=== PATIENT | female | born 1965 | race American Indian/Alaskan Native ===

== ENCOUNTER 2016-12-19 02:41 | Emergency (ER) | payer OTHER ==
[2016-12-19] MEDS ORDERED: Tmp-Smz 800 mg-160 mg DS Tab PO STA (03:20)
--- NOTE | 2016-12-19 03:24 | ED PDOC ---
Arrival/HPI - General Time Seen by Provider: 12/19/16 03:17 Historian: Patient - History of Present Illness Narrative History of Present Illness (Text): 12/19/16 03:20 51 y.o. female who denies any past medical history who says that she felt something bite her on the right side of her lower buttock cheek/upper posterior thigh area and since then says it hurts more. No fever or other findings. No pain anywhere else. Family/Social History Family/Social History: No Known Family HX Allergies/Home Meds Allergies/Adverse Reactions: Allergies No Known Allergies Allergy (Unverified 12/19/16 03:19) Review of Systems - Review of Systems Constitutional: absent: Fevers Gastrointestinal: absent: Abdominal Pain Skin: Skin Lesions Physical Exam Temperature: Afebrile Blood Pressure: Normal Pulse: Regular Respiratory Rate: Normal Appearance: Positive for: Well-Appearing, Non-Toxic, Comfortable Pain Distress: None Mental Status: Positive for: Alert and Oriented X 3 - Systems Exam Head: Present: Atraumatic, Normocephalic Abdomen: Present: Normal Bowel Sounds. No: Tenderness, Distention, Peritoneal Signs Lower Extremity: Present: Other (posterior upper right thigh with an area of warmth and erythema about 4 x 7 cm; no tenderness or induration; there is a small pustular lesion about 1 cm in diameter in the central part of it.) Medical Decision Making ED Course and Treatment: 12/19/16 03:26 Patient with isolated pustular lesion with no signs of abscess, but cellulitis appears to be developing. No additional vesicular lesions or any other findings along the dermatomal distribution to suggest shingles - will d/c and treat with keflex/bactrim for the lesion with cellulitis. Disposition/Present on Arrival - Present on Arrival Any Indicators Present on Arrival: No - Disposition Have Diagnosis and Disposition been Completed?: Yes Diagnosis: Pustular rash, Cellulitis of right thigh Disposition: HOME/ ROUTINE Disposition Time: 15:20 Patient Plan: Discharge Condition: GOOD Discharge Instructions (ExitCare): Cellulitis (ED) Additional Instructions: Take the medications as prescribed. Apply warm compresses to the lesion. Follow up with your primary care doctor. Return to the emergency department if any new concerning symptoms. Prescriptions: Cephalexin [Keflex] 500 mg PO TID #30 cap Sulfamethoxazole/Trimethoprim [Bactrim DS 800 mg-160 mg] 1 tab PO BID #20 tab Referrals: Serenity Freed MD [Non-Staff] - Follow up with primary
[2016-12-19 03:30] VITALS: BP 122/64; PULSE 97; RESP 18; TEMP 99.1; O2SAT 97
== END 2016-12-19 04:00 | disposition home or self-care (01) ==
LOC: ED 02:41
DX: L08.0 Pyoderma (principal); L03.115 Cellulitis of right lower limb